=== PATIENT | female | born 1985 | race Caucasian/White ===

== ENCOUNTER 2017-08-13 13:47 | Emergency (ER) | payer MEDICAID ==
[2017-08-13 14:26] VITALS: BP 125/82; PULSE 89; RESP 16; TEMP 98.1; O2SAT 97
[2017-08-13] MEDS ORDERED: FLUORESCEIN SODIUM 1 MG STRIP OP ONE (14:58)
--- NOTE | 2017-08-13 15:02 | EDPHY ---
H & P Stated Complaint: R eye swelling, discomfort for 1 month. HPI/ROS: CHIEF COMPLAINT: Right eye discomfort HISTORY OF PRESENT ILLNESS: The patient is a 31 y/o female complaining of the sensation of a foreign body on the lateral side of her right eye for the last month. She says it feels "like something was stuck down there." She describes "pressure" and "pulling" sensations along the lateral aspect of her right eye and has begun to develop similar mild symptoms in her left eye. No pain with eye movements. She feels like the vision in her right eye is mildly "cloudy." She cannot identify obvious precipitating factors and denies any preceding trauma. She has attempted to treat her symptoms by putting "colloidal silver in there to kill the bacteria" and by using Optacon A, saline, and various vitamins and supplements. She thinks her symptoms may be related to gluten. She complains of some right ear pressure, but otherwise denies fever, headache, cough, cold, or other symptoms. She does not use contacts or any corrective lenses. REVIEW OF SYSTEMS: A ten point review of systems was performed and is negative with the exception of the items mentioned in the HPI. Past medical history: Denies Past surgical history: Noncontributory Family history: Noncontributory Social history: Works as nanny, [employer] dedicated truck driver. Has boyfriend. Vapes tobacco. Stopped drinking alcohol a few weeks ago. General Appearance: Alert. Vital signs reviewed. Blood pressure 125/82. Eyes: Pupils equal and round, no conjunctival injection, no discharge. Anicteric. Visual Acuity: noted from Nurse's notes. Pupils:equal round and reactive to light. EOMI Lids: no edema or swelling, lids everted and no foreign body seen Skin: no proptosis, no periorbital erythema or swelling, no vesicles Conjunctivae: not injected, no discharge. Small pterygium on right lateral conjunctival that does not extend onto cornea. Cornea: exam with fluorescein shows no uptake. Anterior chamber:normal, no hyphema or hypopyon ENT, Mouth: Mucous membranes are moist, no oropharyngeal erythema or edema. Neck: No lymphadenopathy, supple. Respiratory: Lungs are clear to auscultation; no wheezes, rales, or rhonchi. Cardiovascular: Regular rate and rhythm; no murmur, rub, or gallop. Skin: Warm and dry, no rashes on exposed skin, normal color. Neurological: Alert and oriented. Moving all four extremities easily and equally. Psychiatric: Normal affect. - Personal History LMP (Females 10-55): IUD In Place Current Tetanus Diphtheria and Acellular Pertussis (TDAP): Yes Tetanus Vaccine Date: < 10 years - Medical/Surgical History Hx Asthma: No Hx Chronic Respiratory Disease: No Hx Diabetes: No Hx Cardiac Disease: No Hx Renal Disease: No Hx Cirrhosis: No Hx Alcoholism: No Hx HIV/AIDS: No Hx Splenectomy or Spleen Trauma: No Other PMH: BIPOLAR, lymph node removal. ADHD and RT knee patella "need surgery " - Social History Smoking Status: Never smoked Constitutional: Initial Vital Signs Temperature (C) 36.7 C 08/13/17 14:22 Heart Rate 89 08/13/17 14:22 Respiratory Rate 16 08/13/17 14:22 Blood Pressure 125/82 H 08/13/17 14:22 O2 Sat (%) 97 08/13/17 14:22 O2 Delivery Mode Room Air Allergies/Adverse Reactions: No Known Allergies Allergy (Verified 12/19/15 21:24) Home Medications: Medication Instructions Recorded ARIPiprazole [Abilify 10 mg (*)] 10 mg PO DAILY #30 tab 11/19/15 Melatonin [Melatonin 3 MG (*)] 9 mg PO HS PRN #0 tab 11/19/15 Medical Decision Making ED Course/Re-evaluation: This is a 31 y/o female who presents with a one-month history of right lateral eye discomfort described as "pulling" and a foreign body sensation. Ocular exam shows a small pterygium in this region. Exam is otherwise unremarkable. Plan for OTC eye drops to maintain lubrication and ophthalmology follow up. Return precautions discussed. She is comfortable with this plan. I see no evidence of infection do not suspect conjunctivitis, septal or preseptal cellulitis. Nothing to suggest ocular herpes. No foreign body identified. No corneal abrasion. I do not see signs of keratitis/iritis. Departure - Departure Disposition: Home, Routine, Self-Care Clinical Impression: Pterygium Qualifiers: Laterality: right Qualified Code(s): H11.001 - Unspecified pterygium of right eye Condition: Good Instructions: Pterygium (ED) Additional Instructions: 1. Use artificial tears to keep eye lubricated. 2. Follow up with ophthalmology in the next 2-3 days. 3. Return to the ED for severe pain, vision changes, or other worsening of condition. Referrals: John Middleton MD [Medical Doctor] - As per Instructions Report Scribed for: Iwona Piedra Report Scribed by: Cristina Alexis Date of Report: 08/13/17 Time of Report: 15:14 Physician Review and Approval Statement: 08/13/17 15:01 Portions of this note were transcribed by the medical art therapist. I, Dr. Iwona Piedra, personally performed the history, physical exam, and medical decision- making; and confirmed the accuracy of the information in the transcribed note.
[2017-08-13] MEDS ORDERED: PROPARACAINE 0.5% 15 ML OPHT DROP ONE (15:11)
== END 2017-08-13 15:42 | disposition home or self-care (01) ==
DX: H11.001 Unspecified pterygium of right eye (principal)

== ENCOUNTER 2018-01-07 14:35 | Emergency (ER) | payer SELFPAY ==
--- NOTE | 2018-01-07 14:54 | EDPHY ---
H & P Stated Complaint: R HAND INJURY Time Seen by Provider: 01/07/18 14:53 HPI/ROS: HPI: This is a 32-year-old female who presents with Chief Complaint: Right hand injury Location: Right hand 4th and 5th digit Quality: Injury Duration: Last night around 10:00 p.m. Signs and Symptoms: No bleeding, no radiation, no numbness, no weakness, no tingling, no incontinence, + decreased range of motion, +o swelling, + pain, no fever Timing: Acute Severity: Moderate Context: Patient is right-hand dominant, presents with complaints of self- inflicted right hand injury primarily at the 4th and 5th digits after she was intoxicated with alcohol last night. She reports that she became very angry and punched a wall. She reports that she did feel much pain until this morning when she woke up. She has noticed some tenderness with palpation over the 5th digit greater than the 4th digit also some bruising has started to appear along with mild swelling. Denies decreased range of motion/paresthesias/numbness. Modifying Factors: None Comment: ROS: see HPI Constitutional: No fever, no chills, no weight loss Eyes: No blurred vision Respiratory: No shortness of breath, no cough Cardiovascular: No chest pain Gastrointestinal: No nausea, no vomiting no diarrhea Genitourinary: No dysuria Extremities: No myalgias Neurologic: No weakness, no numbness Skin: No rashes Hematologic: No bruising, no bleeding MEDICAL/SURGICAL/SOCIAL HISTORY: Medical history: BIPOLAR, lymph node removal ADHD and RT knee patella "need surgery" Surgical history: Denies Social history: Employed. CONSTITUTIONAL: Polite and cooperative, adult white female, at bedside , awake and alert, no obvious distress HEENT: Atraumatic and normocephalic, PERRL, EOMI. Tympanic membranes clear. Oropharynx clear, no exudate and moist pink mucosa. Airway patent. No lymphadenopathy. No meningismus. Cardiovascular: Normal S1/S2, regular rate, regular rhythm, without murmur rub or gallop. PULMONARY/CHEST: Symmetrical and nontender. Clear to auscultation bilaterally. Good air movement. No accessory muscle usage. ABDOMEN: Soft, nondistended, nontender, no rebound, no guarding, no peritoneal signs, no masses or organomegaly. No CVAT. EXTREMITIES: 2/2 radial pulses, passenger vessel chef strength 4/5, right hand base of 5th metacarpal and base of 4th metacarpal shows ecchymosis purple issues black in color; mild swelling and tenderness with palpation. DIP/PIP/MCP flexion extension intact. Good light touch sensation. no deformities, no clubbing, no cyanosis or edema. NEUROLOGICAL: no focal neuro deficits. GCS 15. SKIN: Warm and dry, no erythema. no rash. Good capillary refill. Source: Patient Exam Limitations: No limitations - Personal History LMP (Females 10-55): 8-14 Days Ago Current Tetanus/Diphtheria Vaccine: Unsure Current Tetanus Diphtheria and Acellular Pertussis (TDAP): Unsure Tetanus Vaccine Date: < 10 years - Medical/Surgical History Hx Asthma: No Hx Chronic Respiratory Disease: No Hx Diabetes: No Hx Cardiac Disease: No Hx Renal Disease: No Hx Cirrhosis: No Hx Alcoholism: No Hx HIV/AIDS: No Hx Splenectomy or Spleen Trauma: No Other PMH: BIPOLAR, lymph node removal. ADHD and RT knee patella "need surgery " - Social History Smoking Status: Never smoked Constitutional: Initial Vital Signs Temperature (C) 36.7 C 01/07/18 14:38 Heart Rate 97 01/07/18 14:38 Respiratory Rate 18 01/07/18 14:38 Blood Pressure 127/80 H 01/07/18 14:38 O2 Sat (%) 99 01/07/18 14:38 O2 Delivery Mode Room Air Allergies/Adverse Reactions: No Known Allergies Allergy (Verified 01/07/18 14:42) Home Medications: Medication Instructions Recorded oxyCODONE/APAP 5/325 [Percocet 1 - 2 tab PO Q4H PRN #10 tab 01/07/18 5/325 (*)] Medical Decision Making - Diagnostics Imaging Results: Imaging Impressions Hand X-Ray 01/07/18 14:45 Impression: Acute minimally angulated intra-articular fracture base of fifth metacarpal. Procedures: Procedure: Splint placement. A right ulnar gutter splint was applied by the Emergency Room nanotechnology technician. After application of the splint I returned and re-examined the patient. The splint was adequately immobilizing the joint and distal to the splint the patient's circulation and sensation was intact. ED Course/Re-evaluation: Given Percocet with adequate relief X-ray my read shows of fracture at the base of the 5th metacarpal; minimal to no angulation No signs of neurovascular compromise/tenting of skin/compartment syndrome/ extremities and joints examined above and below area of concern and are neurovascularly intact. Placed in ulnar gutter splint, RICE, pain control, Ortho follow-up This patient was seen under the supervision of my secondary supervising physician. I evaluated care for this patient independently. Differential Diagnosis: Differential diagnosis includes but is not limited to boxer's fracture, scaphoid fracture, nerve injury, tendon injury, contusion. - Data Points Medications Given: Discontinued Medications Oxycodone/Acetaminophen (Percocet 5/325) 1 tab PO EDNOW ONE Stop: 01/07/18 15:23 Last Admin: 01/07/18 15:34 Dose: 1 tab Departure - Departure Disposition: Home, Routine, Self-Care Clinical Impression: Closed boxer's fracture Qualifiers: Encounter type: initial encounter Qualified Code(s): S62.339A - Displaced fracture of neck of unspecified metacarpal bone, initial encounter for closed fracture Condition: Good Instructions: Splint Care (ED), Boxer Fracture (ED) Additional Instructions: Keep the splint dry and in place until seen by Orthopedics for follow-up. Take Tylenol 650 mg every 4 hours and/or Ibuprofen 600 mg every 8 hours with food as needed for pain. Use Percocet every 6 hours as needed for severe/break through pain. Do not use Tylenol and Percocet concomitantly. Apply ice for 30 minutes at a time; 2-3 times per day for the next 1-2 days. Follow up with Orthopedics in 7-10 days at which time they will evaluate and recommend with you if conservative management versus further adjuvant is indicated. Return to the ER immediately if you experience new or worsening pain, discoloration, numbness, tingling, or any other symptoms that concern you. Referrals: Clayton Lin MD [Medical Doctor] - As per Instructions Prescriptions: oxyCODONE/APAP 5/325 [Percocet 5/325 (*)] 1 - 2 tab PO Q4H PRN #10 tab PRN Reason: Pain, Severe
[2018-01-07] MEDS ORDERED: OXYCODONE/APAP 5/325 TAB PO ONE (15:22)
[2018-01-07 16:03] VITALS: BP 124/80; PULSE 85; RESP 15; TEMP 98.8; O2SAT 97
== END 2018-01-07 16:03 | disposition home or self-care (01) ==
PROC: 2W3EX1Z Immobilization of Right Hand using Splint (ICD-10-PCS; principal; 2018-01-07)
DX: S62.316A Displaced fracture of base of fifth metacarpal bone, right hand, initial encounter for closed fracture (principal); W22.01XA Walked into wall, initial encounter